=== PATIENT | female | born 1985 | race African-American/Black ===

== ENCOUNTER 2021-04-22 10:34 | Outpatient (REF) | payer OTHER, SELFPAY | END 2021-04-22 10:35 | disposition home or self-care (01) | LOC: HO.LAB 10:34 | PROVIDERS: Visit Provider Internal Medicine | DX: Z20.822 Contact with and (suspected) exposure to COVID-19 (principal) | CPT/HCPCS: C9803; U0003; U0005 ==

== ENCOUNTER 2022-09-04 10:50 | Emergency (ER) | payer OTHER, SELFPAY ==
[2022-09-04 10:52] VITALS: BP 150/99; PULSE 80; RESP 18; TEMP 36.6; O2SAT 98; BMI 35.6
[2022-09-04 11:19] LABS: MANUAL DIFF FLAG NO
[2022-09-04 11:22] LABS: Basophils Percent Auto 0.4 % (0-2); Eosinophils Absolute Auto 0.1 X10*3/uL (0.0-0.4); Hematocrit 36.4 % (37.0-47.0); Hemoglobin 12.5 g/dl (12.0-16.0); Imm Gran Abs Auto 0.01 X10*3/uL (0.00-0.03); Imm Gran Pct Auto 0.1 % (0.0-0.4); Lymphocytes Absolute Auto 2.2 X10*3/uL (1.2-4.9); Lymphocytes Percent Auto 31.2 % (20-40); Mean Corpuscular HGB Conc 34.3 g/dl (31.0-35.0); Mean Corpuscular Hemoglobin 27.8 pg (27.0-33.0); Mean Corpuscular Volume 80.9 fL (80.0-98.0); Mean Platelet Volume 11.1 fL (9.4-12.3); Monocytes Absolute Auto 0.6 X10*3/uL (0.1-1.2); Monocytes Percent Auto 8.9 % (2-11); Neutrophils Absolute Auto 4.1 x10*3/uL (2.0-8.3); Neutrophils Percent Auto 57.4 % (45-73); Platelet Count 203 X10*3/uL (160-400); White Blood Count 7.2 X10*3/uL (4.8-10.8)
[2022-09-04 11:25] LABS: Appearance Urine Clear; Color Urine Yellow; Glucose Urine UA Negative (Negative); Leukocyte Esterase Urine Negative (Negative); Nitrite Urine Negative (Negative); PH 6.5 (5.0-9.0); Specific Gravity - Urine 1.015 (1.005-1.025); UPreg QC Valid YES; Urine Blood Negative (Negative); Urine Ketones Negative (Negative); Urine Pregnancy NEGATIVE (NEGATIVE); Urine Protein Negative (Neg-Trace)
[2022-09-04 11:45] LABS: Anion Gap 12 (12-20); Blood Urea Nitrogen 11 mg/dL (9-16); Calcium 9.3 mg/dL (8.4-10.2); Carbon Dioxide 25 mmol/L (22-29); Chloride 105 mmol/L (96-108); Creatinine Clr Calc Pharmacy 100.1; Estimated Glomerular Filt Rate > 60; Glucose Random 96 mg/dL (60-115); Potassium 3.8 mmol/L (3.3-5.1); Sodium 138 mmol/L (135-145)
--- NOTE | 2022-09-04 12:34 | ED.GENADULT ---
HPI - General Adult General Chief complaint: General Medical Stated complaint: HBP/Nausea Time Seen by Provider: 09/04/22 12:34 Source: patient Mode of arrival: ambulatory Limitations: no limitations History of Present Illness HPI narrative: Patient is a 37 year old assigned female at with a history of HTN presenting to the emergency department today with a headache and concern of high blood pressure. Patient states that she has a headache and is concerned that her blood pressure is high. Patient states that she also has some vague abdominal pain and has concerns of . Patient denies any dizziness, lightheadedness, nausea, vomiting, fever, chills, blurry vision, double vision, loss of vision, chest pain, difficulty breathing, shortness of breath, back pain, night sweats, pain with urination, increased urinary frequency, increased urinary urgency, blood in her urine or stool, syncope or a near syncopal episode, recent trauma or falls, bowel incontinence, bladder incontinence, bowel retention, bladder retention, or any other complaints at this time. Onset (ago): hour(s) Severity: mild Severity scale (1-10): 2 Relieving factors: none Exacerbating factors: none Associated symptoms: denies other symptoms Treatments prior to arrival: none Related Data Allergies Allergy/AdvReac Type Severity Reaction Status Date / Time amoxicillin Allergy Unknown Verified 10/20/19 00:00 Penicillins Allergy Unknown UNKNOWN Unverified 04/18/20 17:27 Sulfa (Sulfonamide Allergy Unknown Verified 10/20/19 00:00 Antibiotics) sulfamethoxazole Allergy Unknown UNKNOWN Unverified 04/18/20 17:27 [From Bactrim] trimethoprim [From Bactrim] Allergy Unknown UNKNOWN Unverified 04/18/20 17:27 Review of Systems Constitutional: Constitutional: Reports no additional constitutional complaints, Denies chills, Denies fever(s), Reports headache(s) and Denies night sweats Eyes: Eyes: Reports no additional eye complaints, Denies blurry vision, Denies change in vision, Denies diplopia, Denies eye discharge, Denies loss of vision and Denies eye pain ENT: Denies dizziness and Reports headache(s) Cardiovascular: Cardiovascular: Reports no additional cardiovascular complaints, Denies chest pain, Denies lightheadedness, Denies Loss of Consciousness and Denies dyspnea Respiratory: Respiratory: Reports no additional respiratory complaints and Denies dyspnea Gastrointestinal: Gastrointestinal: Reports no additional gastrointestinal complaints, Denies abdominal pain, Denies melena, Denies hematochezia, Denies change in bowel habits and Denies change in stool character Genitourinary: Genitourinary: Denies hematuria, Denies urinary frequency, Denies dysuria, Denies urinary incontinence, Denies urinary hesitancy and Denies urinary urgency Musculoskeletal: Musculoskeletal: Reports no additional musculoskeletal complaints, Denies numbness and Denies tingling Neurologic: Denies dizziness, Reports headache(s), Denies loss of vision, Denies numbness and Denies tingling Psychiatric: Psychiatric: Reports no additional psychiatric complaints Endocrine: Endocrine: Reports no additional endocrine complaints Hematologic/Lymphatic: Hematologic/Lymphatic: Reports no additional hematologic/lymphatic complaints Allergic/Immunologic: Allergic/Immunologic: Reports no additional allergic/immunologic complaints PMFSH Past Medical History Attestation statement: The following information was validated with the patient. Source: old records reviewed and nursing notes reviewed Social History Social History Advance Directives: No Advance Directives Information Provided: Yes Physical Exam ED Vital Signs: Vital Signs - 24 hr 09/04/22 10:52 09/04/22 12:35 Temperature 98 F Pulse Rate 80 78 Respiratory Rate 18 19 Blood Pressure 150/99 H 94/71 Pulse Oximetry 98 100 Oxygen Delivery Method Room Air Room Air BMI result Body Mass Index 35.6 Const General: cooperative, no acute distress, alert and awake Nutritional Appearance: well nourished Orientation/consciousness: patient oriented x3 Limitations: no limitations [facility] Head: Yes normal to inspection and Yes atraumatic Ears: hearing grossly normal bilaterally and external ears normal General nose exam: Normal external nose present, no nasal discharge noted and no epistaxis Face and sinus: Yes normal facial exam, No abrasion and No laceration Mouth: Normal oral and palatal mucosa present, no drooling and no muffled voice Eyes General: appearance normal, both eyes and all related structures Periorbital: periorbital findings normal Eyelids: Yes eyelids normal Conjunctivae: conjunctivae normal Pupils: Equal, round and reactive pupils present EOM: EOMs intact bilaterally Neck Neck: Yes normal visual inspection, Yes full ROM and Yes no lymphadenopathy Chest Chest palpation & inspection: normal inspection of the chest Resp Effort & Inspection: normal respiratory effort and able to speak in complete sentences Auscultation: clear to auscultation bilaterally Cardio Rate: regular rate Rhythm: regular rhythm GI Inspection: Yes normal to inspection Palpation (GI): Soft to palpation, not firm, nontender, no guarding and not rigid Neuro General: patient oriented x3 and moves all extremities Cranial nerves: Yes Equal, round and reactive pupils present Cognition (Neuro): normal cognition Motor exam (neuro): 5/5 motor strength present throughout Sensory Exam: Normal double simultaneous stimulation for sensation Coordination: [id number] test normal Extrem General: Yes normal to inspection, Yes full ROM and Yes capillary refill normal Psych Appearance: grossly normal Mental Status: mental status grossly normal Affect: normal affect Attitude: cooperative Thought process: Normal thought process present Thought content: Normal thought content present Insight: Good insight present (Psych) Medical Decision Making Medical Decision Making [facility] Narrative: Patient is a 37 year old assigned female at with a history of HTN presenting to the emergency department today with concerns of a high blood pressure and . Patient's physical exam was unremarkable. Patient's blood work was unremarkable. Patient's urine showed no acute process. I explained my physical exam findings as well as all test results to the patient. I answered all questions asked by the patient. I stressed the importance of the patient taking her medication as prescribed. I stressed the importance of the patient following up with her primary care provider. I stressed the importance of the patient returning to the emergency department immediately if her symptoms were to worsen or if she were to develop any dizziness, shortness of breath, difficulty breathing, chest pain, blurry vision, loss of vision, nausea, vomiting, abdominal pain, fever, chills, back pain, or any other complaints. Patient verbalized agreement and understanding with this treatment plan and discharge. Differential Diagnosis Differential Diagnoses: The differential diagnosis associated with the presentation includes HTN, headache Lab Data [facility] Lab Attestation statement: I reviewed the patient's lab results. 09/04/22 11:14 09/04/22 11:14 Labs: Lab Results 09/04/22 09/04/22 09/04/22 Range/Units 11:14 11:14 11:14 WBC 7.2 (4.8-10.8) X10*3/uL RBC 4.50 (4.20-5.50) X10*6/uL Hgb 12.5 (12.0-16.0) g/dl Hct 36.4 L (37.0-47.0) % MCV 80.9 (80.0-98.0) fL MCH 27.8 (27.0-33.0) pg MCHC 34.3 (31.0-35.0) g/dl RDW 14.0 (11.0-16.0) % Plt Count 203 (160-400) X10*3/uL MPV 11.1 (9.4-12.3) fL Immature Gran % (Auto) 0.1 (0.0-0.4) % Neut % (Auto) 57.4 (45-73) % Lymph % (Auto) 31.2 (20-40) % [place] % (Auto) 8.9 (2-11) % Eos % (Auto) 2.0 (0-4) % Baso % (Auto) 0.4 (0-2) % Lymph # (Auto) 2.2 (1.2-4.9) X10*3/uL [place] # (Auto) 0.6 (0.1-1.2) X10*3/uL Eos # (Auto) 0.1 (0.0-0.4) X10*3/uL Baso # (Auto) 0.0 (0.0-0.2) X10*3/uL Abs Immat Gran (auto) 0.01 (0.00-0.03) X10*3/uL Absolute Neuts (auto) 4.1 (2.0-8.3) x10*3/uL Absolute Nucleated RBC 0.000 (0.0-0.012) X10*3/uL Nucleated RBC % (auto) 0.0 (0.0-0.2) /100WBC Sodium 138 (135-145) mmol/L Potassium 3.8 (3.3-5.1) mmol/L Chloride 105 (96-108) mmol/L Carbon Dioxide 25 (22-29) mmol/L Anion Gap 12 (12-20) BUN 11 (9-16) mg/dL Creatinine 0.81 (0.5-1.4) mg/dL Estim Creat Clear Calc 100.1 Estimated GFR > 60 Random Glucose 96 (60-115) mg/dL Calcium 9.3 (8.4-10.2) mg/dL Urine Color Yellow Urine Appearance Clear Urine pH 6.5 (5.0-9.0) Ur Specific [place] 1.015 (1.005-1.025) Urine Protein Negative (Neg-Trace) mg/dL Urine Glucose (UA) Negative (Negative) mg/dL Urine Ketones Negative (Negative) mg/dL Urine Blood Negative (Negative) Urine Nitrite Negative (Negative) Ur Leukocyte Esterase Negative (Negative) Urine Test (NEGATIVE) 09/04/22 Range/Units 11:14 WBC (4.8-10.8) X10*3/uL RBC (4.20-5.50) X10*6/uL Hgb (12.0-16.0) g/dl Hct (37.0-47.0) % MCV (80.0-98.0) fL MCH (27.0-33.0) pg MCHC (31.0-35.0) g/dl RDW (11.0-16.0) % Plt Count (160-400) X10*3/uL MPV (9.4-12.3) fL Immature Gran % (Auto) (0.0-0.4) % Neut % (Auto) (45-73) % Lymph % (Auto) (20-40) % [place] % (Auto) (2-11) % Eos % (Auto) (0-4) % Baso % (Auto) (0-2) % Lymph # (Auto) (1.2-4.9) X10*3/uL [place] # (Auto) (0.1-1.2) X10*3/uL Eos # (Auto) (0.0-0.4) X10*3/uL Baso # (Auto) (0.0-0.2) X10*3/uL Abs Immat Gran (auto) (0.00-0.03) X10*3/uL Absolute Neuts (auto) (2.0-8.3) x10*3/uL Absolute Nucleated RBC (0.0-0.012) X10*3/uL Nucleated RBC % (auto) (0.0-0.2) /100WBC Sodium (135-145) mmol/L Potassium (3.3-5.1) mmol/L Chloride (96-108) mmol/L Carbon Dioxide (22-29) mmol/L Anion Gap (12-20) BUN (9-16) mg/dL Creatinine (0.5-1.4) mg/dL Estim Creat Clear Calc Estimated GFR Random Glucose (60-115) mg/dL Calcium (8.4-10.2) mg/dL Urine Color Urine Appearance Urine pH (5.0-9.0) Ur Specific [place] (1.005-1.025) Urine Protein (Neg-Trace) mg/dL Urine Glucose (UA) (Negative) mg/dL Urine Ketones (Negative) mg/dL Urine Blood (Negative) Urine Nitrite (Negative) Ur Leukocyte Esterase (Negative) Urine Test NEGATIVE (NEGATIVE) Discharge Plan Discharge Clinical Impression: High blood pressure Patient Disposition: Home, Self-Care Instructions: Hypertension (ED) Additional Instructions: Follow up with a primary care provider. Return to the emergency department immediately if your symptoms worsen or if you develop any dizziness, shortness of breath, difficulty breathing, chest pain, blurry vision, loss of vision, nausea, vomiting, abdominal pain, fever, chills, back pain, or any other complaints. Referrals: [facility] [place] [facility] [place]] (Call to establish and follow up with a primary care provider. If you already have a primary care provider, please follow up with them. ) [facility] [place] [facility]] (Call to establish and follow up with a primary care provider. If you already have a primary care provider, please follow up with them. ) [facility] [place] [facility] [Provider Group] (Call to establish and follow up with a primary care provider. If you already have a primary care provider, please follow up with them. ) Stand Alone Forms: Work/School Release Interventions: ED Discharge Assessment Last Done: 09/04/22 12:41 Discharge Date/Time: 09/04/22 12:42 Print Language: Arabic
[2022-09-04 12:35] VITALS: BP 94/71; PULSE 78; RESP 19; O2SAT 100
== END 2022-09-04 12:42 | disposition home or self-care (01) ==
LOC: HO.ED 12:41
PROVIDERS: Emergency Provider Emergency Medicine
DX: I95.1 Orthostatic hypotension (principal); R51.9 Headache, unspecified; Z79.899 Other long term (current) drug therapy
CPT/HCPCS: 36415; 80048; 81003; 81025; 85025; 99283

== ENCOUNTER 2022-09-10 19:06 | Emergency (ER) | payer OTHER, SELFPAY ==
[2022-09-10 19:22] VITALS: BP 153/73; PULSE 76; RESP 18; TEMP 36.5; O2SAT 96; BMI 37.5
--- NOTE | 2022-09-10 19:55 | ED_ITS ---
HPI - Eye Problem General Chief complaint: Eye Problems Stated complaint: left eye abrasion seen here 2 days ago Source: patient Mode of arrival: ambulatory Limitations: no limitations History of Present Illness HPI Narrative: This is a 37-year-old female presenting with concerns of corneal abrasion to left eye, patient tells me she gets this frequently, she tells me she scratch try and since then has been feeling a discomfort/burning sensation in her left eye. Denies vision changes, nausea, vomiting headache, painful vision, photophobia, headache, dizziness, weakness, chest pain, shortness of breath, fevers and chills. 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 Related Data Previous Rx's Medication Instructions Recorded amlodipine 5 mg tablet 5 mg PO DAILY #30 tabs 09/09/22 ofloxacin 0.3 % eye drops 2 drp ophthalmic (eye) QID 5 days 09/09/22 #5 mL erythromycin 5 mg/gram (0.5 %) eye 1 appl ophthalmic (eye) BID 7 days 09/10/22 ointment #3.5 grams Allergies Allergy/AdvReac Type Severity Reaction Status Date / Time amoxicillin Allergy Unknown Hives Verified 09/10/22 19:25 Penicillins Allergy Unknown UNKNOWN Verified 09/10/22 19:25 Sulfa (Sulfonamide Allergy Unknown Hives Verified 09/10/22 19:25 Antibiotics) sulfamethoxazole Allergy Unknown UNKNOWN Verified 09/10/22 19:25 [From Bactrim] trimethoprim [From Bactrim] Allergy Unknown UNKNOWN Verified 09/10/22 19:25 Review of Systems Review of Systems: Constitutional : No Weight loss, No Fever, No Chills, No Fatigue, No Malaise ENT/Mouth : No sore throat, No Rhinorrhea Eyes: No Eye Pain, No Swelling, No Redness, + eye discomfort Cardiovascular : No Chest Pain, No SOB, No Dyspnea on Exertion, No Orthopnea, No Edema, No Palpitations Respiratory : No Cough, No Sputum, No Wheezing Gastrointestinal : No Nausea, No Vomiting, No Diarrhea, No Constipation, No abdominal Pain, No Hematochezia, No Melena Genitourinary : No Dysuria, No Urinary Frequency, No Hematuria, Musculoskeletal : No joint pain, No Myalgias, No Joint Swelling Skin : No Skin Lesions, No rash Neuro : No Weakness, No Numbness, No Dizziness, No Headache Psych : No Anxiety/Panic, No Depression All other systems reviewed and are negative Yes all other systems are reviewed and are negative [facility] Past Medical History Attestation statement: The following information was validated with the patient. Source: old records reviewed and nursing notes reviewed Physical Exam Vital Signs: Vital Signs: Last Vital Signs Temp 97.7 F 09/10/22 19:22 Pulse 76 09/10/22 19:22 Resp 18 09/10/22 19:22 BP 153/73 H 09/10/22 19:22 Pulse Ox 96 09/10/22 19:22 O2 Del Method 09/10/22 19:22 BMI result Body Mass Index 37.5 vss Appearance: Alert.? Oriented X3.? No acute distress.? Head: Normocephalic, atraumatic, no step-offs or deformities Eyes: Pupils equal, round and reactive to light. Extraocular movements intact and pain-free. Fluorescein stain revealing?punctate abrasions to left eye with left eye with conjunctival injection. No corneal ulcers negative Collin sign CVS: Normal heart rate and rhythm.? Pulses normal.? Respiratory: No respiratory distress.? Breath sounds normal.? Abdomen: Soft and nontender.? Skin: Skin warm and dry.? Normal skin color.? Normal skin turgor.? Extremities: No lower extremity edema.? No calf ttp. 5/5 strength to bilateral upper and lower extremities Neuro: Oriented X 3.? No motor deficit.? No sensory deficit. CN 2-12 intact Course Reevaluation(s) Reevaluation #1: There are small punctate abrasions to the I throughout with conjunctival injection. Patient will be discharged home on erythromycin ointment. Advised to follow-up with ophthalmology. Time: 20:05 Medical Decision Making Medical Decision Making MDM Narrative: 37-year-old female presents with concerns for corneal abrasion to the left eye. Tells me she gets them frequently when she rubs her eyes, this is how this happened. Patient does not wear contact lenses. Physical exam significant for Concerns for corneal abrasion, unlikely corneal ulcer, herpetic ophthalmicus, wet macular degeneration, acute closed angle glaucoma. No signs of globe rupture. Plan at this time fluorescein stain. Advised to follow-up with ophthalmology. Differential Diagnosis Differential Diagnoses: The differential diagnosis associated with the presenta tion includes Concerns for corneal abrasion, unlikely corneal ulcer, herpetic ophthalmicus, wet macular degeneration, acute closed angle glaucoma. Admission/Observation Consideration of admission/observation: Escalation of care including admission/observation considered Not indicated Core Measures AMI core measures followed: Yes Measure exclusions: not indicated Critical Care Time Critical Care Time Critical Care Time: No Discharge Plan Discharge Clinical Impression: Corneal abrasion Patient Disposition: Home, Self-Care Instructions: Corneal Abrasion (ED) Additional Instructions: Take your medications as prescribed. If you were prescribed antibiotics today, it is important that you take your medication to their entirety, do not skip any doses, do not finish them early. Follow-up with your primary care provider this week. Follow-up with eye doctor Return to the emergency department with new or worsening symptoms. Such as fevers, chills, chest pain, shortness of breath, nausea, vomiting, dizziness, headache, vision changes, lethargy In case of emergency call 911 Prescriptions: New erythromycin 5 mg/gram (0.5 %) ointment 1 appl ophthalmic (eye) BID 7 Days Qty: 3.5 0RF No Action ofloxacin 0.3 % drops 2 drp ophthalmic (eye) QID 5 Days Qty: 5 0RF amlodipine 5 mg tablet 5 mg PO DAILY Qty: 30 0RF Referrals: Yeyo Torres [Physician] - 2 days Stand Alone Forms: Work/School Release
[2022-09-10] MEDS: Fluorescein Sodium STRIP 1 STRIP EYE-BOTH (20:01)
[2022-09-10] MEDS: Tetracaine HCl/PF 0.5% Oph Sol 4 ML DROPS 1 DROP EYE-BOTH (20:01)
== END 2022-09-10 20:11 | disposition home or self-care (01) ==
PROVIDERS: Emergency Provider Emergency Medicine
DX: S05.02XA Injury of conjunctiva and corneal abrasion without foreign body, left eye, initial encounter (principal); X58.XXXA Exposure to other specified factors, initial encounter; Y93.89 Activity, other specified; Y92.019 Unspecified place in single-family (private) house as the place of occurrence of the external cause; Y99.9 Unspecified external cause status
CPT/HCPCS: 99282; 99283

== ENCOUNTER 2023-01-05 14:04 | Outpatient (REF) | payer OTHER, SELFPAY ==
[2023-01-05 15:47] LABS: HCG Quantitative < 2 mIU/mL
== END 2023-01-05 14:05 | disposition home or self-care (01) ==
LOC: HO.LAB 14:04
PROVIDERS: PCP Nurse Practitioner Family; Visit Provider Nurse Practitioner Family
DX: N92.6 Irregular menstruation, unspecified (principal); D50.9 Iron deficiency anemia, unspecified; Z13.0 Encounter for screening for diseases of the blood and blood-forming organs and certain disorders involving the immune mechanism; Z13.220 Encounter for screening for lipoid disorders; Z13.29 Encounter for screening for other suspected endocrine disorder
CPT/HCPCS: 36415; 84702

== ENCOUNTER 2024-01-11 09:44 | Outpatient (AMB) | payer OTHER, SELFPAY ==
--- NOTE | 2024-01-11 09:51 | MHC.PC.OV ---
Vital Signs 01/11/24 09:54 Height 5 ft 2 in Weight 205 lb 6 oz BMI 37.6 BP 110/72 Blood Pressure Location Lt brachial Position Sitting Pulse 79 Pulse Source Pulse Oximeter Pulse Oximetry (%) 96 Oxygen Delivery Method Room Air Intake Visit Reasons: Establish Care Intake Note: Patient is here today for NAHUM from [facility] Request for lab order. Managing Partner Required: No Straight Edger: Not Required per policy Accompanied by: Self / Same As Patient Allergies amoxicillin Allergy (Unknown, Verified 01/11/24 09:54) Hives Penicillins Allergy (Unknown, Verified 01/11/24 09:54) UNKNOWN Sulfa (Sulfonamide Antibiotics) Allergy (Unknown, Verified 01/11/24 09:54) Hives sulfamethoxazole [From Bactrim] Allergy (Unknown, Verified 01/11/24 09:54) UNKNOWN trimethoprim [From Bactrim] Allergy (Unknown, Verified 01/11/24 09:54) UNKNOWN Medication List - Last Reconciled 01/14/24 by Juan Rios MD amlodipine 5 mg PO DAILY Tobacco use date assessed: 01/11/24 Dental Screening Dental Screen Date: 01/11/24 Did you have a dental visit in the last 12 months?: No Did you have a dental problem in the last 6 months where you did not have access to dental care?: No Was dental information given to patient?: Patient has dentist HPI Establish Care HPI Details 38-year-old female presents to the office to discuss her medical issues. She is transferring her care to [place], her provider has left the practice. Patient would like to be tested for hepatitis. She reports that she noted high colored urine. No burning on urination. No fevers or chills. Compliant with her medications. Patient gives history of psoriasis. Currently she has on no medications. She would like to see a marina sales and service supervisor. In addition patient is also complaining of dizziness. Intermittent symptoms. No loss of consciousness. No urinary incontinence. No fall or injury. Symptoms are prominent when she changes position of her head. FORMERLY [facility] Medical History (Updated 01/14/24 @ 14:02 by Juan Rios MD) Hypertension Psoriasis Surgical History No pertinent past surgical history Family History Mother No problems noted. Father Parkinsons disease Diabetic acidosis, type II Daughter No problems noted. Son No problems noted. Other Mental and behavioral problem Substance abuse Social History Housing: Apartment Alcohol intake: current Alcohol intake frequency: a few times a month Alcohol type: wine Patient Tobacco Use Status: Never used Tobacco e-Cigarette/Vaping Use: Never Used Second Hand Smoke Exposure: No service: No Current occupational status: employed Cognitive needs: No Hearing needs: No Vision needs: Yes ([facility] Questionnaire PHQ-9 Over the last 2 weeks, how often have you been bothered by any of the following problems? 1. Little interest or pleasure in doing things: not at all 2. Feeling down, depressed, or hopeless: not at all 3. Trouble falling or staying asleep, or sleeping too much: not at all 4. Feeling tired or having little energy: not at all 5. Poor appetite or overeating: not at all 6. Feeling bad about yourself - or that you are a failure or have let yourself or your family down: not at all 7. Trouble concentrating on things, such as reading the newspaper or watching television: not at all 8. Moving or speaking so slowly that other people could have noticed. Or the opposite - being so fidgety or restless that you have been moving around a lot more than usual: not at all 9. Thoughts that you would be better off or of hurting yourself in some way: not at all Total score: 0 Depression Screening Interpretation: Negative Depression Screening Done: Yes Source: Developed by Drs. Yeyo Marcos, Bibi Cueto, Parth Schwarz and colleagues, with an educational van from [employer]. Thrive Questionnaire Date Thrive assessed: 01/11/24 I am a: Patient What is your living situation today?: I have a steady place to live Within the past 12 months, did the food you bought not last and you didn't have the money to get more?: Never true Within the past 12 months, did you worry whether your food would run out before you got money to buy more?: Never true Do you have trouble paying for medicines?: No Do you have trouble getting transportation to medical appointments?: No Do you have trouble paying your heating and electricity bill?: No Do you have trouble taking care of your child, family member or friend?: No Do you have trouble with day-to-day activities such as bathing, preparing meals, shopping, managing finances, etc.?: No Are you currently unemployed and looking for a job?: No Are you interested in more education?: No Currently or been in a relationship where the following occur: no concerns reported THRIVE Score: 0 AUDIT C Alcohol Use Questionnaire (AUDIT-C) 1. How often do you have a drink containing alcohol?: Never Total Score: 0 ABDOUL-7 AMB Questionnaire ABDOUL-7 Date ABDOUL - 7 assessed: 01/11/24 Feeling nervous, anxious, or on edge: 1 = Several days Not being able to stop or control worryin = Several days Worrying too much about different things: 1 = Several days Trouble relaxin = Not at all Being so restless that it is hard to sit still: 0 = Not at all Becoming easily annoyed or irritable: 0 = Not at all Feeling afraid as if something awful might happen: 0 = Not at all Total ABDOUL-7 score (0-4 normal; 5-9 mild; 10-14 moderate; 15-21 severe): 3 Source: Developed by Drs. Yeyo Marcos, Bibi Cueto, Parth Schwarz and colleagues, with an educational van from [employer]. Physical exam (Primary Care) Vital Signs: Last Vital Signs Pulse 79 01/11/24 09:54 BP 110/72 01/11/24 09:54 Pulse Ox 96 01/11/24 09:54 Oxygen Delivery Method Room Air 01/11/24 09:54 Care Plan Goal for BP management: Blood pressure is in range. BMI result Body Mass Index 37.6 BMI Assessment/Plan discussion: High (1 lb per week weight loss suggested.) BMI High, discussed plan: lifestyle, weight reduction and dietary Tobacco/Smoking Status: Tobacco use Status Tobacco use date assessed 01/11/24 01/11/24 10:29 Patient Tobacco Use Status Never used Tobacco 01/11/24 10:30 e-Cigarette/Vaping Use Never Used 01/11/24 10:30 PHQ-9: PHQ-9 Score PHQ-9: Total score 0 01/14/24 06:20 Depression Screening Interpretation: Negative Thrive Assessment: Date of Thrive Assessment Date Thrive assessed 01/11/24 01/11/24 09:53 Currently or been in a relationship where the following occur: no concerns reported Const General: cooperative and healthy appearing Nutritional Appearance: well nourished Orientation/consciousness: patient oriented x3 Limitations: no limitations HENMT Head: Yes normal to inspection Eyes General: appearance normal, both eyes and all related structures Neck Neck: Yes normal visual inspection Chest Chest palpation & inspection: normal palpation of entire chest wall Resp Effort & Inspection: normal respiratory effort Skin Other: hand: Discoloration of the thenar surface. Right hip and leg: Examined with medical clinic manager in the room. Hyperpigmented areas, scaly lesion overlying. Neuro General: patient oriented x3 Assessment and Plan Assessment & Plan (1) Hypertension: Code(s): I10 - Essential (primary) hypertension Plan: Continue amlodipine at the same dosage. Blood work has been ordered. Will call with the results. (2) Psoriasis: Code(s): L40.9 - Psoriasis, unspecified Plan: Dermatology consult has been requested. (3) Dizziness: Code(s): R42 - Dizziness and giddiness Plan: Reassurance. Orders: Orders Complete Blood Count no Diff 01/11/24 I10 - Essential (primary) hypertension Lipid Panel 01/11/24 I10 - Essential (primary) hypertension Thyroid Stimulating Hormone 01/11/24 I10 - Essential (primary) hypertension Basic Metabolic Panel 01/11/24 I10 - Essential (primary) hypertension Liver Panel 01/11/24 I10 - Essential (primary) hypertension Erythrocyte Sedimentation Rate 01/11/24 I10 - Essential (primary) hypertension Medications: Refilled amlodipine 5 mg PO DAILY 90 tabs 3RF Coding Level of Care Code Est Pt Level 4 (70491) Complex EM visit Add On G2211 Diagnoses Hypertension I10 Psoriasis L40.9 Dizziness R42
[2024-01-11 09:54] VITALS: BP 110/72; PULSE 79; O2SAT 96; BMI 37.6
== END 2024-01-11 11:08 | disposition home or self-care (01) ==
PROVIDERS: PCP Nurse Practitioner Family; Visit Provider Internal Medicine
DX: I10 Essential (primary) hypertension (principal); L40.9 Psoriasis, unspecified; R42 Dizziness and giddiness
CPT/HCPCS: 99214; G2211

== ENCOUNTER 2024-01-11 11:17 | Outpatient (REF) | payer OTHER, SELFPAY ==
[2024-01-11 12:01] LABS: Hematocrit 34.2 % (37.0-47.0); Hemoglobin 11.9 g/dl (12.0-16.0); Mean Corpuscular HGB Conc 34.8 g/dl (31.0-35.0); Mean Corpuscular Hemoglobin 27.7 pg (27.0-33.0); Mean Corpuscular Volume 79.5 fL (80.0-98.0); Platelet Count 163 X10*3/uL (160-400); White Blood Count 4.7 X10*3/uL (4.8-10.8)
[2024-01-11 12:58] LABS: Erythrocyte Sedimentation Rate 19 MM/HR (0-20)
[2024-01-11 13:06] LABS: Alanine Aminotransferase 67 U/L (0-31); Albumin Level 3.9 g/dL (3.5-5.0); Alkaline Phosphatase 104 U/L (39-117); Anion Gap 11 (12-20); Aspartate Amino Transferase 68 U/L (5-31); Bilirubin Direct 0.2 mg/dL (0.0-0.5); Bilirubin Total 0.6 mg/dL (0.0-1.0); Blood Urea Nitrogen 8 mg/dL (9-16); Carbon Dioxide 26 mmol/L (22-29); Chloride 105 mmol/L (96-108); Cholesterol 157 mg/dL (<200); Estimated Glomerular Filt Rate > 60; Glucose Random 98 mg/dL (60-115); HDL Cholesterol 41 mg/dL (>40); LDL Cholesterol Calculated 96 mg/dL (<100); Potassium 3.4 mmol/L (3.3-5.1); Sodium 139 mmol/L (135-145); Total Protein 8.3 g/dL (6.5-8.0); Triglycerides 101 mg/dL (<150)
[2024-01-11 13:10] LABS: Thyroid Stimulating Hormone 2.68 uIU/mL (0.32-4.0)
== END 2024-01-11 11:18 | disposition home or self-care (01) ==
LOC: HO.LAB 11:17
PROVIDERS: PCP Internal Medicine; Visit Provider Internal Medicine
DX: I10 Essential (primary) hypertension (principal)
CPT/HCPCS: 36415; 80048; 80061; 80076; 84443; 85027; 85652

== ENCOUNTER 2024-02-18 11:18 | Outpatient (REF) | payer OTHER, SELFPAY ==
[2024-02-19 03:51] LABS: HBS Num1 23.68 mIU/mL (0-7.99); HBc Num1 0.13 S/CO (0.00-0.79); HBsAGNum1 0.53 S/CO (0.00-0.99); HIV AB/AG Nonreactive (Nonreactive); HIV Num 1 0.06 S/CO (0.00-0.99); Hepatitis A Antibody IgM 0.15 Index (0-0.79); Hepatitis B Core Antibody Nonreactive (Nonreactive); Hepatitis B Surface Antigen Negative (Negative); ~HepC Num1 0.21 S/CO (0.00-0.79); ~Hepatitis A Antibody IgM Nonreactive (Nonreactive); ~Hepatitis B Surface Antibody REACTIVE (Nonreactive); ~Hepatitis C Antibody Nonreactive (Nonreactive)
[2024-02-21 18:50] LABS: RPR Rapid Plasma Reagin NON-REACTIVE (NON-REACTIVE)
== END 2024-02-18 11:19 | disposition home or self-care (01) ==
LOC: HO.LAB 11:18
PROVIDERS: PCP Internal Medicine; Visit Provider Internal Medicine
DX: R74.8 Abnormal levels of other serum enzymes (principal); Z11.9 Encounter for screening for infectious and parasitic diseases, unspecified
CPT/HCPCS: 36415; 86592; 86704; 86706; 86709; 86803; 87340; 87389

== ENCOUNTER 2024-04-12 09:45 | Outpatient (AMB) | payer OTHER, SELFPAY ==
--- NOTE | 2024-04-12 10:06 | A.OFFPC_ITS ---
Vital Signs 04/12/24 10:07 Height 5 ft 2 in Weight 203 lb BMI 37.1 BP 120/64 Blood Pressure Location Lt brachial Position Sitting Pulse 83 Pulse Source Pulse Oximeter Pulse Oximetry (%) 98 Oxygen Delivery Method Room Air Intake Visit Reasons: Annual Exam Intake Note: Patient is here today for a physical and lab results. Acidizer Required: No Engineering Programmer: Not Required per policy Accompanied by: Self / Same As Patient Allergies amoxicillin Allergy (Unknown, Verified 04/12/24 11:02) Hives Penicillins Allergy (Unknown, Verified 04/12/24 11:02) UNKNOWN Sulfa (Sulfonamide Antibiotics) Allergy (Unknown, Verified 04/12/24 11:02) Hives sulfamethoxazole [From Bactrim] Allergy (Unknown, Verified 04/12/24 11:02) UNKNOWN trimethoprim [From Bactrim] Allergy (Unknown, Verified 04/12/24 11:02) UNKNOWN Medication List - Last Reconciled 04/12/24 by Juan Rios MD amlodipine 5 mg PO DAILY Tobacco use date assessed: 04/12/24 Dental Screening Dental Screen Date: 01/11/24 HPI Annual Exam HPI Details 38-year-old female presents to the [facility] for an annual physical. Patient is requesting clarification on her blood work. Her liver enzymes were slightly elevated in the last office visit. She would like to know if it is related to her hepatitis infection. She is also complaining of bloating in the lower abdomen. Attributes it to a specific yogurt she eats. FORMERLY [facility] Medical History Hypertension Psoriasis Surgical History No pertinent past surgical history Family History Mother No problems noted. Father Parkinsons disease Diabetic acidosis, type II Daughter No problems noted. Son No problems noted. Other Mental and behavioral problem Substance abuse Social History Housing: Apartment Alcohol intake: current Alcohol intake frequency: a few times a month Alcohol type: wine Patient Tobacco Use Status: Never used Tobacco e-Cigarette/Vaping Use: Never Used Second Hand Smoke Exposure: No service: No Current occupational status: employed Cognitive needs: No Hearing needs: No Vision needs: Yes ([facility]ert) Questionnaire PHQ-9 Over the last 2 weeks, how often have you been bothered by any of the following problems? 1. Little interest or pleasure in doing things: not at all 2. Feeling down, depressed, or hopeless: not at all 3. Trouble falling or staying asleep, or sleeping too much: nearly every day 4. Feeling tired or having little energy: several days 5. Poor appetite or overeating: not at all 6. Feeling bad about yourself - or that you are a failure or have let yourself or your family down: not at all 7. Trouble concentrating on things, such as reading the newspaper or watching television: not at all 8. Moving or speaking so slowly that other people could have noticed. Or the opposite - being so fidgety or restless that you have been moving around a lot more than usual: not at all 9. Thoughts that you would be better off or of hurting yourself in some way: not at all Total score: 4 Depression Screening Interpretation: Negative Depression Screening Done: Yes Source: Developed by Drs. Yeyo Marcos, Bibi Cueto, Parth Schwarz and colleagues, with an educational van from [employer]. Thrive Questionnaire Date Thrive assessed: 04/11/24 I am a: Patient What is your living situation today?: I have a steady place to live Within the past 12 months, did the food you bought not last and you didn't have the money to get more?: Often true Within the past 12 months, did you worry whether your food would run out before you got money to buy more?: I choose not to answer this question Do you have trouble paying for medicines?: No Do you have trouble getting transportation to medical appointments?: Yes Do you have trouble paying your heating and electricity bill?: No Do you have trouble taking care of your child, family member or friend?: No Do you have trouble with day-to-day activities such as bathing, preparing meals, shopping, managing finances, etc.?: No Are you currently unemployed and looking for a job?: Yes Are you interested in more education?: No Please select the resources that you would like help with: Transportation Currently or been in a relationship where the following occur: No concerns reported THRIVE Score: 2 AUDIT C Alcohol Use Questionnaire (AUDIT-C) 1. How often do you have a drink containing alcohol?: Monthly or less 2. How many drinks containing alcohol do you have on a typical day when you are drinking?: 1 or 2 3. How often do you have six or more drinks on one occasion?: Never Total Score: 1 ABDOUL-7 AMB Questionnaire ABDOUL-7 Date ABDOUL - 7 assessed: 04/12/24 Feeling nervous, anxious, or on edge: 0 = Not at all Not being able to stop or control worryin = Not at all Worrying too much about different things: 0 = Not at all Trouble relaxin = Not at all Being so restless that it is hard to sit still: 0 = Not at all Becoming easily annoyed or irritable: 0 = Not at all Feeling afraid as if something awful might happen: 0 = Not at all Total ABDOUL-7 score (0-4 normal; 5-9 mild; 10-14 moderate; 15-21 severe): 0 Source: Developed by Drs. Yeyo Marcos, Bibi Cueto, Parth Schwarz and colleagues, with an educational van from [employer]. Physical exam (Primary Care) Vital Signs: Last Vital Signs Pulse 83 04/12/24 10:07 BP 120/64 04/12/24 10:07 Pulse Ox 98 04/12/24 10:07 Oxygen Delivery Method Room Air 04/12/24 10:07 Care Plan Goal for BP management: Blood pressure is in range. BMI result Body Mass Index 37.1 BMI Assessment/Plan discussion: High Tobacco/Smoking Status: Tobacco use Status Tobacco use date assessed 04/12/24 04/12/24 10:19 Patient Tobacco Use Status Never used Tobacco 04/12/24 10:19 e-Cigarette/Vaping Use Never Used 04/12/24 10:19 PHQ-9: PHQ-9 Score PHQ-9: Total score 4 04/12/24 10:19 Depression Screening Interpretation: Negative Thrive Assessment: Date of Thrive Assessment Date Thrive assessed 04/11/24 04/12/24 10:19 Currently or been in a relationship where the following occur: No concerns reported Const General: cooperative and healthy appearing Nutritional Appearance: well nourished Orientation/consciousness: patient oriented x3 Limitations: no limitations HENMT Head: Yes normal to inspection Eyes General: appearance normal, both eyes and all related structures Neck Neck: Yes normal visual inspection Chest Chest palpation & inspection: normal palpation of entire chest wall Resp Effort & Inspection: normal respiratory effort Neuro General: patient oriented x3 Assessment and Plan Assessment & Plan (1) Hypertension: Code(s): I10 - Essential (primary) hypertension Plan: Blood pressure is in range. Continue current medications. (2) Annual physical exam: Code(s): Z00.00 - Encounter for general adult medical examination without abnormal findings Plan: Patient was informed that her blood work showed mild elevation in the liver enzyme. Also she has no evidence of active hepatitis. She has evidence of hepatitis immunization in the past. Patient verbally understanding. Coding Level of Care Code Est Pt Prev Care 18-39y(38585) Diagnoses Hypertension I10 Annual physical exam Z00.00
[2024-04-12 10:07] VITALS: BP 120/64; PULSE 83; O2SAT 98; BMI 37.1
== END 2024-04-12 11:06 | disposition home or self-care (01) ==
PROVIDERS: PCP Nurse Practitioner Family; Visit Provider Internal Medicine
DX: I10 Essential (primary) hypertension (principal); Z00.00 Encounter for general adult medical examination without abnormal findings
CPT/HCPCS: 99395

== ENCOUNTER 2024-06-26 11:13 | Emergency (ER) | payer OTHER, SELFPAY ==
[2024-06-26 11:16] VITALS: BP 129/55; PULSE 74; RESP 18; TEMP 36.8; O2SAT 99; BMI 37.4
--- NOTE | 2024-06-26 11:41 | ED.EYEPROB ---
HPI - Eye Problem General Chief complaint: Eye Problems Stated complaint: L Eye Corneal Abrasion Time Seen by Provider: 06/26/24 11:40 Source: patient and RN notes reviewed Mode of arrival: ambulatory Limitations: no limitations History of Present Illness ED Provider: Samia Uriostegui PA-C HPI Narrative: This is a 38-year-old female, with a history of hypertension, who presents emergency department with complaints of left eye irritation. Patient states that she was rubbing her eye yesterday and feels as though she scratched the surface of her eye. She states that she awoke this morning with her eye crusted shut. She does not wear contact lenses. She states that she wears glasses which she left at home. Denies any changes in her vision. Denies any fevers or chills. No fevers or chills. No recent illness. She denies any severe eye pain. She states that she has a history of a corneal abrasion which he has had in the past, states that her symptoms feel similar. No other complaints or concerns at this time. chief complaint: eye injury Onset (ago): day(s) Onset description: gradual Duration: constant Location: left eye Eye Symptoms: pain and itching Place: home Mechanism: direct trauma If Pain, Quality: aching Associated symptoms: none Treatments Prior to Arrival: none Related Data Previous Rx's ?Medication ?Instructions ?Recorded amlodipine 5 mg tablet 5 mg PO DAILY #90 tabs 01/11/24 ofloxacin 0.3 % eye drops 2 drp ophthalmic (eye) QID 5 days 06/26/24 #10 mL Allergies Allergy/AdvReac Type Severity Reaction Status Date / Time amoxicillin Allergy Unknown Hives Verified 06/26/24 11:18 Penicillins Allergy Unknown UNKNOWN Verified 06/26/24 11:18 Sulfa (Sulfonamide Allergy Unknown Hives Verified 06/26/24 11:18 Antibiotics) sulfamethoxazole Allergy Unknown UNKNOWN Verified 06/26/24 11:18 [From Bactrim] trimethoprim [From Bactrim] Allergy Unknown UNKNOWN Verified 06/26/24 11:18 Review of Systems Review of Systems: Yes all other systems are reviewed and are negative Constitutional: Constitutional: Reports as per [facility] Past Medical History Medical History Hypertension Psoriasis Surgical History No pertinent past surgical history Family History Family History Mother No problems noted. Father Parkinsons disease Diabetic acidosis, type II Daughter No problems noted. Son No problems noted. Other Mental and behavioral problem Substance abuse Social History Social History Housing: Apartment Alcohol intake: current Alcohol intake frequency: a few times a month Alcohol type: wine Patient Tobacco Use Status: Never used Tobacco e-Cigarette/Vaping Use: Never Used Second Hand Smoke Exposure: No Advance Directives: No Advance Directives Information Provided: Yes Do you have a plan to hurt others: No Plan service: No Current occupational status: employed Cognitive needs: No Hearing needs: No Vision needs: Yes (mert) Physical Exam Vital Signs: Vital Signs: Last Vital Signs Temp 98.2 F 06/26/24 11:16 Pulse 74 06/26/24 11:16 Resp 18 06/26/24 11:16 BP 129/55 L 06/26/24 11:16 Pulse Ox 99 06/26/24 11:16 O2 Del Method Room Air 06/26/24 11:16 BMI result Body Mass Index 37.4 Const: General: cooperative, comfortable and no acute distress Orientation/consciousness: patient oriented x3 Limitations: no limitations HEENT: Head: Yes normal to inspection, Yes normocephalic and Yes atraumatic Ears: hearing grossly normal bilaterally General nose exam: Normal external nose present Face and sinus: Yes normal facial exam Mouth: Normal oral and palatal mucosa present, oropharynx normal and moist mucous membranes Throat: Yes posterior oropharynx normal Eyes: Other: Left eye, with slight conjunctival injection. Fluorescein stain performed, with diffuse fluorescein uptake, no foreign body or corneal abrasion noted. Negative Collin sign. No pain with extraocular movements. Full range of motion of the eye without difficulty. General: appearance normal, both eyes and all related structures Eyelids: Yes eyelids normal Pupils: Equal, round and reactive pupils present EOM: EOMs intact bilaterally Neck: Neck: Yes normal visual inspection, Yes full ROM and Yes no lymphadenopathy Lymphatic: no lymphadenopathy noted Chest: Chest palpation & inspection: normal inspection of the chest Resp: Effort & Inspection: normal respiratory effort and able to speak in complete sentences Auscultation: clear to auscultation bilaterally, no crackles, no rales, no rhonchi and no wheezes Cardio: Rate: regular rate Rhythm: regular rhythm Heart sounds: S1 normal heart sound present and S2 normal heart sound present GI: Inspection: Yes normal to inspection Skin: General skin exam: no rashes or lesions noted Trauma: no lacerations or abrasions Wounds: no wounds Neuro: General: patient oriented x3 and moves all extremities Cranial nerves: Yes Equal, round and reactive pupils present Extrem: General: Yes normal to inspection Right upper extremity: normal to inspection Left upper extremity: normal to inspection Right lower extremity: normal to inspection Left lower extremity: normal to inspection Medications Administered Discontinued Medications Generic Name Dose Route Start Last Admin Trade Name Freq PRN Reason Stop Dose Admin Fluorescein Sodium 1 strip 06/26/24 11:48 06/26/24 11:53 Fluorescein Sodium Strip EYE-LEFT 06/26/24 11:49 1 strip ONCE ONE Administration Tetracaine HCl 1 drop 06/26/24 12:03 06/26/24 12:06 Tetracaine Hcl/Pf 0.5% Oph Jesica 4 Ml Drops EYE-LEFT 06/26/24 12:04 1 drop ONCE ONE Administration Medical Decision Making Medical Decision Making [facility] Narrative: This is a 38-year-old female, with a history of hypertension, who presents emergency department with complaints of left eye irritation since yesterday. She has a history of corneal abrasions after itching her eye, and states that her symptoms feel similar. States that she itched her eye yesterday and believes that this attributed to her symptoms today. Denies any fevers or chills. No vision changes. Visual acuity intact. Conjunctiva is diffusely uptake in by fluorescein stain, consistent with conjunctivitis, will treat with antibiotic eyedrops. Given strict return precautions. Given referral to Ophthalmology as she does not have an eye doctor at this time. Patient stable for discharge. Differential Diagnosis Differential Diagnoses: The differential diagnosis associated with the presentation includes Conjunctivitis, foreign body, corneal abrasion, corneal laceration Admission/Observation Consideration of admission/observation: Escalation of care including admission/observation considered Discharge Plan Discharge Clinical Impression: Conjunctivitis Patient Disposition: Home, Self-Care Instructions: Eye Pain (ED), Conjunctivitis (ED) Additional Instructions: You were seen in the emergency department due to left eye irritation. Your eye appears irritated, which is a form of conjunctivitis. Could be viral, bacterial, or could be caused by scratching your eye. Your eye exam appears to show some irritation to the left eye. Please use antibiotic eyedrops as prescribed. Finish the entire course even if your symptoms improve. Avoid itching your eye as this can cause your symptoms get worse. Watch for any new or worsening symptoms including but not limited to severe eye pain, changes in vision, please return if any of these occur. You may follow-up with Dr. Torres, call his office to make an appointment. Prescriptions: New ofloxacin 0.3 % drops 2 drp ophthalmic (eye) QID 5 Days Qty: 10 0RF No Action amlodipine 5 mg tablet 5 mg PO DAILY Qty: 90 3RF Referrals: Yeyo Torres [Physician] - Stand Alone Forms: Work/School Release Print Language: Ukrainian
[2024-06-26] MEDS: Fluorescein Sodium STRIP 1 STRIP EYE-LEFT (11:53)
[2024-06-26] MEDS: Tetracaine HCl/PF 0.5% Oph Sol 4 ML DROPS 1 DROP EYE-LEFT (12:06)
[2024-06-26 12:46] VITALS: BP 129/55; PULSE 74; RESP 18; TEMP 36.8; O2SAT 99
== END 2024-06-26 12:46 | disposition home or self-care (01) ==
PROVIDERS: Emergency Provider Emergency Medicine; PCP Internal Medicine
DX: H10.9 Unspecified conjunctivitis (principal); H57.89 Other specified disorders of eye and adnexa; I10 Essential (primary) hypertension; L40.9 Psoriasis, unspecified
CPT/HCPCS: 99282; 99283

== ENCOUNTER 2024-11-13 11:18 | Emergency (ER) | payer OTHER, SELFPAY ==
[2024-11-13 11:52] VITALS: BP 143/85; PULSE 79; RESP 19; TEMP 36.6; O2SAT 98; BMI 37.1
--- NOTE | 2024-11-13 11:52 | ED.EYEPROB ---
HPI - Eye Problem General Chief complaint: Eye Problems Stated complaint: green discharge from eyes Time Seen by Provider: 11/13/24 12:04 Source: patient Mode of arrival: ambulatory Limitations: no limitations History of Present Illness ED Provider: CEZAR BARBER PA-C HPI Narrative: 39 year old female with past medical history significant for hypertension and psoriasis presents to the ED today for evaluation of bilateral eye pain and discharge since this morning. Reports waking up with crusting to both eyes this morning. Reports green/yellow discharge from both eyes. States the symptoms in her left eye are worse. Reports associated photophobia. She does have a history of a corneal abrasion. 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 No recent upper respiratory symptoms. No fever or chills. Denies any new vision changes. Does not wear corrective lenses. Related Data Previous Rx's ?Medication ?Instructions ?Recorded ofloxacin 0.3 % eye drops 2 drp ophthalmic (eye) QID 5 days 06/26/24 #10 mL amlodipine 5 mg tablet 5 mg PO DAILY #90 tabs 07/28/24 ofloxacin 0.3 % eye drops 2 drp ophthalmic (eye) QID #10 mL 11/13/24 Allergies Allergy/AdvReac Type Severity Reaction Status Date / Time amoxicillin Allergy Unknown Hives Verified 11/13/24 11:53 Penicillins Allergy Unknown UNKNOWN Verified 11/13/24 11:53 Sulfa (Sulfonamide Allergy Unknown Hives Verified 11/13/24 11:53 Antibiotics) sulfamethoxazole Allergy Unknown UNKNOWN Verified 11/13/24 11:53 [From Bactrim] trimethoprim [From Bactrim] Allergy Unknown UNKNOWN Verified 11/13/24 11:53 Review of Systems Review of Systems: Yes all other systems are reviewed and are negative [facility]LY [facility] Past Medical History Attestation statement: The following information was validated with the patient. Source: old records reviewed and nursing notes reviewed Medical History Hypertension Psoriasis Surgical History No pertinent past surgical history Family History Family History Mother No problems noted. Father Parkinsons disease Diabetic acidosis, type II Daughter No problems noted. Son No problems noted. Other Mental and behavioral problem Substance abuse Social History Social History Housing: Apartment Alcohol intake: current Alcohol intake frequency: a few times a month Alcohol type: wine Patient Tobacco Use Status: Never used Tobacco e-Cigarette/Vaping Use: Never Used Second Hand Smoke Exposure: No Advance Directives: No Advance Directives Information Provided: Yes Do you have a plan to hurt others: No Plan service: No Current occupational status: employed Cognitive needs: No Hearing needs: No Vision needs: Yes (mert) Physical Exam Vital Signs: Vital Signs: Last Vital Signs Temp 98 F 11/13/24 12:32 Pulse 79 11/13/24 12:32 Resp 19 11/13/24 12:32 BP 143/85 H 11/13/24 12:32 Pulse Ox 98 11/13/24 12:32 O2 Del Method Room Air 11/13/24 12:32 BMI result Body Mass Index 37.1 hypertensive, vitals otherwise wnl General: Well appearing, in no acute distress. Skin: Warm, dry, intact. No rashes or lesions. Head: Normocephalic, atraumatic. EENT: no periorbital swelling. No enophthalmous or exopthalmous. EOMs intact without pain or entrapment. PERRLA. Positive photophobia. No obvious foreign body or abrasion. No conjunctival injection or chemosis. No hazy cornea. Visual acuity OD 20/25, OS 20/70. On tetracaine exam, there is reuptake noted to bottom left suggesting abrasion, no FB. No ulceration. No dendritic lesions. Cardiac: Chest wall symmetric Lungs: Normal respiratory effort without accessory muscle use Neuro: AOx3. Normal speech. Ambulating with steady gait. Course Course Course Narrative: This is a Rapid Medical Examination (RME) performed by Lary Barber PA-C in triage. Full HPI, ROS, assessment and treatment plan per primary provider in the Main ED. Hx: 39 yo female here for eval of green/yellow discharge from eyes on waking. reports am crusting. hx of corneal abrasion. reports pain to both eyes. no corrective lenses. PE/vitals: well appearing, + photophobia, no conjunctivitis, no obvious discharge. no obvious abrasion Plan: Tetracaine, fluorescein, visual acuity Reevaluation(s) Reevaluation #1: Exam consistent with possible corneal abrasion to left eye. Given discharge and crusting to both eyes, will prescribe ofloxacin drops for coverage. Patient has remained stable throughout ED visit today. Discussed worrisome signs and symptoms and when to return to the ED. All questions answered at this time. Patient is agreeable with disposition and stable for discharge. Medications Administered Discontinued Medications Generic Name Dose Route Start Last Admin Trade Name Tram PRN Reason Stop Dose Admin Fluorescein Sodium 1 strip 11/13/24 11:54 11/13/24 12:07 Fluorescein Sodium Strip EYE-BOTH 11/13/24 11:55 1 strip ONCE ONE Administration Tetracaine HCl 1 drop 11/13/24 11:54 11/13/24 12:07 Tetracaine Hcl/Pf 0.5% Oph Jesica 4 Ml Drops EYE-BOTH 11/13/24 11:55 1 drop ONCE ONE Administration Medical Decision Making Medical Decision Making MDM Narrative: 39 year old female with past medical history significant for hypertension and psoriasis presents to the ED today for evaluation of bilateral eye pain and discharge since this morning. Slightly hypertensive, vitals otherwise WNL. On exam, no periorbital swelling. No enophthalmous or exopthalmous. EOMs intact without pain or entrapment. PERRLA. Positive photophobia. No obvious foreign body or abrasion. No conjunctival injection or chemosis. No hazy cornea. Visual acuity OD 20/25, OS 20/70. On tetracaine exam, there is reuptake noted to bottom left suggesting abrasion, no FB. No ulceration. No dendritic lesions. Differential diagnosis includes corneal abrasion, corneal foreign body, viral vs bacterial conjunctivitis, allergic conjunctivitis. Unlikely preseptal or orbital cellulitis, acute angle closure glaucoma, iritis, keratitis, scleritis, uveitis, herpes ophthalmicus. Plan: Tetracaine, fluorescein, visual acuity IOP not necessary. Differential Diagnosis Differential Diagnoses: The differential diagnosis associated with the presentation includes as above. Admission/Observation not indicated. Discharge Plan Discharge Clinical Impression: Corneal abrasion Patient Disposition: Home, Self-Care Instructions: Corneal Abrasion (ED), Conjunctivitis (ED) Additional Instructions: You were seen in the ED today for eye pain/discharge. You have a small corneal abrasion to your left eye. I am sending ofloxacin eye drops to your pharmacy. Please instill 2 drops into each eye 4 times daily for 5 days. Follow up with your PCP. Return with any new or worsening symptoms. In the case of an emergency call 911. Prescriptions: New ofloxacin 0.3 % drops 2 drp ophthalmic (eye) QID Qty: 10 0RF Rx Instructions: instill two drops into both eyes four times daily No Action amlodipine 5 mg tablet 5 mg PO DAILY Qty: 90 3RF ofloxacin 0.3 % drops 2 drp ophthalmic (eye) QID 5 Days Qty: 10 0RF Referrals: Juan Rios MD [Primary Care Provider] - Stand Alone Forms: Work/School Release Interventions: ED Discharge Assessment Last Done: 11/13/24 12:32 Discharge Date/Time: 11/13/24 12:33 Print Language: Divehi
[2024-11-13] MEDS: Fluorescein Sodium STRIP 1 STRIP EYE-BOTH (12:07)
[2024-11-13] MEDS: Tetracaine HCl/PF 0.5% Oph Sol 4 ML DROPS 1 DROP EYE-BOTH (12:07)
[2024-11-13 12:32] VITALS: BP 143/85; PULSE 79; RESP 19; TEMP 36.6; O2SAT 98
--- OUTSIDE RECORDS SUMMARY | 2024-11-13 14:14 | XMS_ITS | Encounter Summary ---
Author Organization [facility] Address [address] [place] [address] Care Team Providers Care Tool And Die Maker/Designer Name Role Phone Physician, Pcp Unknown Primary Care Provider Ellen vailable Encounter Details Date Type Department Care Team (Latest Contact Info) Description 08/21/2024 Lab Requisition [facility] - Main Lab [address] [place] [address] Bijan Tony MD [address] [address] Encounter for screening for infections with a predominantly sexual mode of transmission; Acute vaginitis Social History Tobacco Use Types Packs/Day Years Used Date Smoking Tobacco: Never Assessed Comments Unknown Sex and Gender Information Value Date Recorded Sex Assigned at Not on file Legal Sex Female 10:19 AM EST Gender Identity Not on file Sexual Orientation Not on file documented as of this encounter Plan of Treatment Not on file documented as of this encounter Procedures Procedure Name Priority Date/Time Associated Diagnosis Comments VAGINITIS PATHOGENS BY PCR Routine 08/21/2024 12:00 AM EST Encounter for screening for infections with a predominantly sexual mode of transmission Acute vaginitis CHLAMYDIA TRACHOMATIS AND NEISSERIA GONORRHOEAE PCR Routine 08/21/2024 12:00 AM EST Encounter for screening for infections with a predominantly sexual mode of transmission Acute vaginitis documented in this encounter Results * (ABNORMAL) Vaginitis pathogens molecular study (08/21/2024 12:00 AM EST) Trichomonas vaginalis Negative Negative 08/22/2024 9:37 AM [facility] Gardnerella vaginalis Positive(A) Negative 08/22/2024 9:37 AM [facility] Sandra Species Negative Negative 9:37 AM [facility] Swab Vaginal structure / Unknown 08/21/2024 08/21/2024 6:26 PM EST us Bijan Toyn MD LAB MICROBIOLOGY - GENERAL ORD ERABLES Final Result [facility] [address] [place] [address], [place] [phone] * Chlamydia trachomatis and Neisseria gonorrhoeae molecular study (08/21/2024 12:00 AM EST) Neisseria gonorrhoeae PCR Negative Negative LAB MOLECULAR DIAGNOSTICS METHOD 08/22/2024 8:33 AM [facility] Chlamydia trachomatis PCR Negative Negative LAB MOLECULAR DIAGNOSTICS METHOD 08/22/2024 8:33 AM [facility] Swab Cervix uteri structure / Unknown 08/21/2024 08/21/2024 6:26 PM EST us Bijan Tony MD LAB MICROBIOLOGY - GENERAL ORD ERABLES Final Result [facility] [address] [place] [address], [place] [phone] documented in this encounter Visit Diagnoses Diagnosis Encounter for screening for infections with a predominantly sexual mode of transmission Acute vaginitis Unspecified vaginitis and vulvovaginitis documented in this encounter Care Teams Tool And Die Maker/Designer Relationship Specialty Start Date End Date Physician, Pcp Unknown PCP - General 08/21/24 documented as of this encounter
--- OUTSIDE RECORDS SUMMARY | 2024-11-13 14:14 | XMS_ITS | Clinical Summary ---
Author Organization [address] Address [address] [place] [phone] Phone Care Team Providers Care Production Repairer Name Role Phone Physician, Pcp Unknown Primary Care Provider Ellen vailable Encounters Date Type Department Care Team Description 08/21/2024 Lab Requisition [facility] - Main Lab [address] [facility] [place] [address] Bijan Tony MD Encounter for screening for infections with a predominantly sexual mode of transmission; Acute vaginitis from Last 3 Months Social History Tobacco Use Types Packs/Day Years Used Date Smoking Tobacco: Never Assessed Comments Unknown Sex and Gender Information Value Date Recorded Sex Assigned at Not on file Legal Sex Female 10:19 AM EST Gender Identity Not on file Sexual Orientation Not on file Plan of Treatment Health Maintenance Due Date Last Done Comments Pneumococcal Vaccine: Pediatrics (0 to 5 Years) and At-Risk Patients (6 to 64 Years) (1 of 2 - PCV) 2006 Cervical Cancer Screening: Pap Smear 2008 HPV Vaccines (2 - 3-dose SCDM series) 2017 06/29/2017 Cholesterol Screening (Lipid Panel) 06/30/2022 Depression Screening 06/30/2022 Social Influencers of Health Screening 06/30/2022 Hypertension/CHF/CAD Annual BMP Blood Test 07/16/2022 COVID-19 Vaccine ( - season) 2024 Influenza Vaccine (Season Ended) 2025 05/21/2019 DTaP,Tdap,and Td Vaccines (9 - Td or Tdap) 08/02/2027 08/02/2017, 02/24/2017, 04/30/2000, Additional history exists HIB Vaccines Completed 04/22/1989, 04/22/1989 IPV Vaccines Completed 07/18/1992, 03/02, 04/22/1989, Additional history exists Hepatitis B Vaccines Completed 06/29/2017, 01/10/2015, 03/19/1994, Additional history exists MMR Vaccines Completed 06/29/2017, 12/31, 03/13/1996, Additional history exists HIV Screening Completed 08/21/2024 Hepatitis C Screening Completed 08/21/2024 Hepatitis A Vaccines Aged Out No long er eligible based on patient's age to complete this topic Meningococcal ACWY Vaccine Aged Out N o longer eligible based on patient's age to complete this topic Meningococcal B Vaccine Aged Out No l onger eligible based on patient's age to complete this topic RSV Immunization Patients Under 20 months Aged Out No longer eligible based on patient's age to complete this topic Varicella Vaccines Aged Out No longer eligible based on patient's age to complete this topic Procedures Procedure Name Priority Date/Time Associated Diagnosis Comments TREPONEMA PALLIDUM ANTIBODY WITH REFLEX TO RPR AND PARTICLE AGGLUTINATION Routine 08/21/2024 2:58 PM EST Exposure to sexually transmitted disease (STD) Infection HIV 1, 2 ANTIBODY, P24 ANTIGEN WITH REFLEX TO DIFFERENTIATION Routine 08/21/2024 2:58 PM EST Exposure to sexually transmitted disease (STD) Infection HEPATITIS C ANTIBODY Routine 08/21/2024 2:58 PM EST Exposure to sexually transmitted disease (STD) Infection HEPATITIS B SURFACE ANTIGEN WITH CONFIRMATION Routine 08/21/2024 2:58 PM EST Exposure to sexually transmitted disease (STD) Infection COMPLETE BLOOD COUNT Routine 08/21/2024 2:58 PM EST Exposure to sexually transmitted disease (STD) Infection VAGINITIS PATHOGENS BY PCR Routine 08/21/2024 12:00 AM EST Encounter for screening for infections with a predominantly sexual mode of transmission Acute vaginitis CHLAMYDIA TRACHOMATIS AND NEISSERIA GONORRHOEAE PCR Routine 08/21/2024 12:00 AM EST Encounter for screening for infections with a predominantly sexual mode of transmission Acute vaginitis from Last 3 Months Results * Hepatitis C antibody (08/21/2024 2:58 PM EST) [facility] Hepatitis C Antibody Negative Negative LAB CHEMISTRY METHOD 08/21/2024 5:31 PM EST [facility] Blood Venous blood specimen / Unknown Venipuncture / Unknown 08/21/2024 2:58 PM EST 08/21/2024 4:11 PM EST us Bijan Tony MD LAB BLOOD ORDERABLES Final Res ult Performing Organization Address [facility] Co de Phone Number [facility] [address] [place] [address], [place] [phone] * HIV 1,2 antibody, p24 antigen with reflex to differentiation (08/21/2024 2:58 PM EST) [facility] HIV Combo AB/AG Negative Negative LAB CHEMISTRY METHOD 08/21/2024 5:32 PM EST [facility] Blood Venous blood specimen / Unknown Venipuncture / Unknown 08/21/2024 2:58 PM EST 08/21/2024 4:11 PM EST Narrative [facility] - 08/21/2024 5:32 PM EST This assay is a 4th generation assay allowing for earlier detection of HIV infection by detecting the presence of the HIV-1 p24 antigen as well as the traditional antibodies to HIV type 1 (including group O) and type 2. ??Use of a 4th generation assay is the current CDC recommendation for HIV screening. us Bijan Tony MD LAB BLOOD ORDERABLES Final Res ult Performing Organization Address [facility]/ZIP Co de Phone Number [facility] [address] [place] [address], [place] [phone] * Hepatitis B surface antigen with reflex to confirmation (08/21/2024 2:58 PM EST) [facility] Hepatitis B Surface Ag Negative Negative LAB CHEMISTRY METHOD 08/21/2024 5:03 PM EST [facility] Blood Venous blood specimen / Unknown Venipuncture / Unknown 08/21/2024 2:58 PM EST 08/21/2024 4:11 PM EST Narrative [facility] - 08/21/2024 5:03 PM EST Over the counter supplements containing high doses of biotin may interfere with this assay. ??If interference is suspected, patients shoud be retested after refraining from biotin supplements for 72 hours. us Bijan Tony MD LAB BLOOD ORDERABLES Final Res ult Performing Organization Address [facility]/ZIP Co de Phone Number [facility] [address] [place] [address], [place] [phone] * Treponema pallidum antibody with reflex to RPR and particle agglutination (08/21/2024 2:58 PM EST) [facility] T. Pallidum Antibodies Negative Negative LAB CHEMISTRY METHOD 08/21/2024 5:02 PM EST [facility] Blood Venous blood specimen / Unknown Venipuncture / Unknown 08/21/2024 2:58 PM EST 08/21/2024 4:11 PM EST us Bijan Tony MD LAB BLOOD ORDERABLES Final Res ult Performing Organization Address City/[facility]/ZIP Co de Phone Number [facility] [address] [place] [address], [place] [phone] * (ABNORMAL) Complete blood count (08/21/2024 2:58 PM EST) [facility] WBC 6.7 4.8 - 10.8 K/mcL LAB HEMETOLOGY METHOD 08/21/2024 4:29 PM EST [facility] RBC 4.60 3.80 - 4.80 M/mcL LAB HEMETOLOGY METHOD 08/21/2024 4:29 PM [facility] Hemoglobin 12.2 11.5 - 16.0 g/dL LAB HEMETOLOGY METHOD 08/21/2024 4:29 PM [facility] Hematocrit 36.8 35.0 - 47.0 % LAB HEMETOLOGY METHOD 08/21/2024 4:29 PM [facility] MCV 80.9 79.0 - 98.0 FL LAB HEMETOLOGY METHOD 08/21/2024 4:29 PM [facility] MCH 26.8(L) 27.0 - 32.0 pcg LAB HEMETOLOGY METHOD 08/21/2024 4:29 PM [facility] MCHC 33.2 32.0 - 37.0 g/dL LAB HEMETOLOGY METHOD 08/21/2024 4:29 PM [facility] RDW 15.2(H) 11.0 - 15.0 % LAB HEMETOLOGY METHOD 08/21/2024 4:29 PM [facility] Platelets 222 130 - 400 K/mcL LAB HEMETOLOGY METHOD 08/21/2024 4:29 PM [facility] MPV 12.2(H) 7.0 - 11.0 FL LAB HEMETOLOGY METHOD 08/21/2024 4:29 PM [facility] NRBC 0.0 <1.0 % LAB HEMETOLOGY METHOD 08/21/2024 4:29 PM [facility] NRBC Absolute 0.00 <0.10 K/mcL LAB HEMETOLOGY METHOD 08/21/2024 4:29 PM [facility] Blood Venous blood specimen / Unknown Venipuncture / Unknown 08/21/2024 2:58 PM EST 08/21/2024 4:11 PM EST us Bijan Tony MD LAB BLOOD ORDERABLES Final Res ult Performing Organization Address City/[facility]/ZIP Co de Phone Number [facility] [address] [place] [address], [place] [phone] * (ABNORMAL) Vaginitis pathogens molecular study (08/21/2024 12:00 AM EST) Trichomonas vaginalis Negative Negative 08/22/2024 9:37 AM EST [facility] Gardnerella vaginalis Positive(A) Negative 08/22/2024 9:37 AM EST [facility] Sandra Species Negative Negative 9:37 AM EST [facility] Swab Vaginal structure / Unknown 08/21/2024 08/21/2024 6:26 PM EST us Bijan Tony MD LAB MICROBIOLOGY - GENERAL ORD ERABLES Final Result Performing Organization Address [facility]/ZIP Co de Phone Number [facility] [address] [place] [address], [place] [phone] * Chlamydia trachomatis and Neisseria gonorrhoeae molecular study (08/21/2024 12:00 AM EST) Neisseria gonorrhoeae PCR Negative Negative LAB MOLECULAR DIAGNOSTICS METHOD 08/22/2024 8:33 AM EST [facility] Chlamydia trachomatis PCR Negative Negative LAB MOLECULAR DIAGNOSTICS METHOD 08/22/2024 8:33 AM EST [facility] Swab Cervix uteri structure / Unknown 08/21/2024 08/21/2024 6:26 PM EST us Bijan Tony MD LAB MICROBIOLOGY - GENERAL ORD ERABLES Final Result [facility] [address] [place] [address], [place] [phone] from Last 3 Months Insurance MEDICAID - [place] Care Teams Production Repairer Relationship Specialty Start Date End Date Physician, Pcp Unknown PCP - General 08/21/24
== END 2024-11-13 12:33 | disposition home or self-care (01) ==
PROVIDERS: Emergency Provider Emergency Medicine; PCP Internal Medicine
DX: S05.02XA Injury of conjunctiva and corneal abrasion without foreign body, left eye, initial encounter (principal); S05.01XA Injury of conjunctiva and corneal abrasion without foreign body, right eye, initial encounter; H53.143 Visual discomfort, bilateral; X58.XXXA Exposure to other specified factors, initial encounter; Y93.9 Activity, unspecified; Y92.9 Unspecified place or not applicable; Y99.8 Other external cause status
CPT/HCPCS: 99282; 99283